=== PATIENT | female | born 1940 | race Caucasian/White ===

== ENCOUNTER 2017-03-01 13:01 | Inpatient (IN) | payer OTHER ==
[~2017-03-01] VITALS: Ht 152.4 cm; Wt 37.2 kg
[~2017-03-01 13:01] MED LIST: ARICEPT10 MG PO; ASACOL HD800 MG PO; ASPIR-LOW81 MG PO; ATORVASTATIN CA40 MG PO; AZITHROMYCIN250 MG PO; CEFDINIR300 MG PO; CIPRO250 MG PO; COLACE100 MG PO; CYANOCOBALAM1000 MCG PO; Cipro PO; DELZICOL400 MG PO; DONEPEZIL HCL10 MG PO; DONEPEZIL HCL5 MG PO; FAMOTIDINE20 MG PO; FERROUS SULFAT325 MG PO; FLAGYL500 MG PO; Flagyl PO; LIPITOR40 MG PO; LOPERAMIDE2 M1 PO; MIRTAZAPINE15 MG PO; MULTIPLE VITAM1 EAC4 PO; NAPROSYN500 MG PO; NORVASC10 MG PO; PREDNISONE5 MG PO; RAYOS1 MG PO; RAYOS5 MG PO; ULTRAM50 MG PO; VALIUM5 MG PO; VITAMIN B-12500 MC5 SL; ZOFRAN ODT4 MG PO; ZOLPIDEM TARTRAT5 MG PO; predniSONE PO
[2017-03-01 14:21] LABS: HEMATOCRIT 31.2 % (36.0-46.0); MCH 28.7 PG (29.0-34.0); MCHC 32.7 G/DL (30.0-36.0); MCV 87.9 FL (83-99); MEAN PLAT.VOLUME 10.1 uM^3 (9.5-12.4); PLATELET COUNT 130 K/uL (156-360); RBC DIS.WIDTH-CV 13.4 % (11.8-14.6); RBC DIS.WIDTH-SD 43.3 % (39-53); RED BLOOD COUNT 3.55 M/uL (3.80-5.20); WHITE BLOOD COUNT 8.7 K/uL (4.1-10.2)
[2017-03-01 14:30] LABS: CHLORIDE 108 mEq/L (99-109); POTASSIUM 4.4 mEq/L (3.7-5.4); SODIUM 139 mEq/L (136-147)
[2017-03-01 14:32] LABS: GLUCOSE 77 mg/dL (70-99); INTER. NORMALIZED RATIO 1.3; PROTHROMBIN TIME 12.8 (9.2-11.2)
[2017-03-01 14:33] LABS: ANION GAP 8 MEQ/L (2-14)
[2017-03-01 14:36] LABS: GFR ESTIMATE (CALCULATED) 51 mL/min/; UREA NITROGEN (BUN) 12 mg/dL (9-23)
[2017-03-01] MEDS ORDERED: LO-DOSE ASPIRIN81 M2 PO (16:08)
[2017-03-01] MEDS ORDERED: ASPIR 8181 M1 PO (16:08)
[2017-03-01] MEDS ORDERED: LORATADINE10 M2 PO (16:09)
[2017-03-01] MEDS ORDERED: ESCITALOPRAM OXA5 MG PO (16:09)
[2017-03-01 22:15] VITALS: BP 136/61
[2017-03-01 23:38] VITALS: BP 137/73
[2017-03-02 07:40] LABS: HEMATOCRIT 32.1 % (36.0-46.0); MCH 29.5 PG (29.0-34.0); MCHC 33.3 G/DL (30.0-36.0); MCV 88.4 FL (83-99); MEAN PLAT.VOLUME 10.6 uM^3 (9.5-12.4); PLATELET COUNT 131 K/uL (156-360); RBC DIS.WIDTH-CV 13.6 % (11.8-14.6); RBC DIS.WIDTH-SD 43.9 % (39-53); RED BLOOD COUNT 3.63 M/uL (3.80-5.20); WHITE BLOOD COUNT 6.2 K/uL (4.1-10.2)
[2017-03-02 08:17] VITALS: BP 154/72
[2017-03-02 09:58] VITALS: BP 90/36
[2017-03-02 10:08] VITALS: BP 116/56
[2017-03-02 17:21] VITALS: BP 139/74
[2017-03-02 20:45] VITALS: BP 140/76
[2017-03-02 21:07] LABS: POINT-OF-CARE METER ID UU14188577
[2017-03-02 23:49] VITALS: BP 133/61
[2017-03-03 04:54] VITALS: BP 135/62
[2017-03-03 07:11] LABS: HEMATOCRIT 27.1 % (36.0-46.0); MCV 88.9 FL (83-99)
[2017-03-03 08:00] VITALS: BP 99/52
[2017-03-03 11:51] VITALS: BP 85/48
[2017-03-03 16:29] VITALS: BP 120/96
[2017-03-03 19:32] VITALS: BP 113/59
[2017-03-04] VITALS (9 sets, daily range): BP systolic 112–146; BP diastolic 54–64
[2017-03-04 07:05] LABS: HEMATOCRIT 26.7 % (36.0-46.0); MCH 28.7 PG (29.0-34.0); MCHC 31.8 G/DL (30.0-36.0); MCV 90.2 FL (83-99); MEAN PLAT.VOLUME 10.8 uM^3 (9.5-12.4); PLATELET COUNT 101 K/uL (156-360); RBC DIS.WIDTH-CV 14.1 % (11.8-14.6); RBC DIS.WIDTH-SD 46.1 % (39-53); RED BLOOD COUNT 2.96 M/uL (3.80-5.20)
[2017-03-05 00:34] VITALS: BP 140/75
[2017-03-05 06:42] LABS: HEMATOCRIT 30.1 % (36.0-46.0); MCH 28.4 PG (29.0-34.0); MCHC 32.9 G/DL (30.0-36.0); MEAN PLAT.VOLUME 10.2 uM^3 (9.5-12.4); PLATELET COUNT 101 K/uL (156-360); RBC DIS.WIDTH-CV 15.7 % (11.8-14.6); RBC DIS.WIDTH-SD 49.2 % (39-53); RED BLOOD COUNT 3.49 M/uL (3.80-5.20); WHITE BLOOD COUNT 6.2 K/uL (4.1-10.2)
[2017-03-05 06:45] LABS: MCV 86.2 FL (83-99)
[2017-03-05 07:52] LABS: ANION GAP 6 MEQ/L (2-14); CHLORIDE 109 MEQ/L (99-109); GFR ESTIMATE (CALCULATED) > 59 mL/min/; GLUCOSE 70 mg/dL (70-99); POTASSIUM 3.6 MEQ/L (3.7-5.4); SAMPLE HEMOLYSIS CHECK 0; SAMPLE ICTERIC CHECK 0; SAMPLE LIPEMIA CHECK 0; SODIUM 141 MEQ/L (136-147)
[2017-03-05 07:54] LABS: UREA NITROGEN (BUN) 23 mg/dL (9-23)
[2017-03-05 08:23] VITALS: BP 154/74
[2017-03-05 08:36] VITALS: BP 145/76
[2017-03-05 16:12] VITALS: BP 143/64
[2017-03-05 19:42] VITALS: BP 127/73
[2017-03-06 06:57] LABS: HEMATOCRIT 30.8 % (36.0-46.0); MCHC 33.8 G/DL (30.0-36.0); MCV 85.8 FL (83-99); MEAN PLAT.VOLUME 10.2 uM^3 (9.5-12.4); NRBC (%) 0.3 /100 WBC (0-0); PLATELET COUNT 129 K/uL (156-360); RBC DIS.WIDTH-CV 15.5 % (11.8-14.6); RBC DIS.WIDTH-SD 48.2 % (39-53); RED BLOOD COUNT 3.59 M/uL (3.80-5.20); WHITE BLOOD COUNT 7.3 K/uL (4.1-10.2)
[2017-03-06 08:01] VITALS: BP 173/78
[2017-03-06] MEDS ORDERED: HYDROCODON-ACE1 EAC7 PO (08:19)
[2017-03-06] MEDS ORDERED: LOVENOX30 MG/0.3 SC (08:19)
[2017-03-06 15:57] VITALS: BP 143/75
== END 2017-03-06 17:36 | DRG 481 ==
LOC: EME 13:01 → EDOF 17:40 → 3EAST 17:40
PROVIDERS: Emergency Medicine; Internal Medicine; Orthopaedic Surgery Hand Surgery; Orthopaedic Surgery Sports Medicine
PROC: 0QS734Z Reposition Left Upper Femur with Internal Fixation Device, Percutaneous Approach (ICD-10-PCS; principal; 2017-03-01)
PROC: 30233N1 Transfusion of Nonautologous Red Blood Cells into Peripheral Vein, Percutaneous Approach (ICD-10-PCS; 2017-03-04)
DX: S72.012A Unspecified intracapsular fracture of left femur, initial encounter for closed fracture (principal); S00.03XA Contusion of scalp, initial encounter; W01.0XXA Fall on same level from slipping, tripping and stumbling without subsequent striking against object, initial encounter; Y92.009 Unspecified place in unspecified non-institutional (private) residence as the place of occurrence of the external cause; I47.2 Ventricular tachycardia; E44.0 Moderate protein-calorie malnutrition; Z68.1 Body mass index [BMI] 19.9 or less, adult; D62 Acute posthemorrhagic anemia; G30.9 Alzheimer's disease, unspecified; F02.80 Dementia in other diseases classified elsewhere, unspecified severity, without behavioral disturbance, psychotic disturbance, mood disturbance, and anxiety; I10 Essential (primary) hypertension; J44.9 Chronic obstructive pulmonary disease, unspecified; E78.5 Hyperlipidemia, unspecified; Z66 Do not resuscitate; Z51.5 Encounter for palliative care; M54.9 Dorsalgia, unspecified; G89.29 Other chronic pain; F32.9 Major depressive disorder, single episode, unspecified; Z87.01 Personal history of pneumonia (recurrent); Z86.010 Personal history of colon polyps; Z87.891 Personal history of nicotine dependence; Z88.0 Allergy status to penicillin
CPT/HCPCS: 70450; 71010; 73502; 74176; 76000; 80048; 82948; 85014; 85018; 85027; 85610; 86900; 86901; 86920; 93005; 94799; 97530 GO; 97530 GP; 99281; 99285; C1713; J0131; J0690; J1650; J2250; J2270; J3010; J7120; P9016